=== PATIENT | female | born 1945 ===

== ENCOUNTER 2022-08-27 06:20 | Day surgery (SDC) | payer OTHER | END 2022-08-27 12:00 | disposition home or self-care (01) | LOC: AMB-ENDOS 06:20 | PROVIDERS: ATTEND Surgery | DX: D12.8 Benign neoplasm of rectum (principal); R93.5 Abnormal findings on diagnostic imaging of other abdominal regions, including retroperitoneum; R19.4 Change in bowel habit; K57.30 Diverticulosis of large intestine without perforation or abscess without bleeding; K64.8 Other hemorrhoids ==

== ENCOUNTER 2023-05-13 05:40 | Day surgery (SDC) | payer OTHER ==
[2023-05-10 10:48] LABS: HEMATOCRIT 37.9 % (36.0-45.00); HEMOGLOBIN 12.5 g/dL (12.0-15.00); MEAN CELL VOLUME 85.9 fL (80.00-100.00); MEAN CORPUSCULAR HEMOGLOBIN 28.4 pg (27.00-32.0); PLATELET COUNT 221 K/uL (150-450); RED BLOOD COUNT 4.41 M/uL (4.00-6.00); RED CELL DISTRIBUTION WIDTH 13.5 % (11.5-14.5)
[2023-05-10 10:49] LABS: PH,URINE 5.5 (5.0-8.0); URINE APPEARANCE Clear; URINE BILIRRUBIN Negative (NEGATIVE); URINE BLOOD Negative; URINE COLOR Yellow; URINE GLUCOSE Negative (NEGATIVE); URINE LEUKOCYTE Trace; URINE NITRATE Negative; URINE PROTEIN Negative (NEGATIVE)
[2023-05-10 10:50] LABS: URINE BACTERIA 8.8 uL (0.0-1933); URINE RBC 4.8 uL (0.0-20.8); URINE WBC 9.5 uL (0.0-23.2)
[2023-05-10 11:32] LABS: INR 1.04; PARTIAL THROMBOPLASTIN TIME 30.3 SECONDS (22.0-34.0); PROTHROMBIN TIME 10.9 SECONDS (9.0-11.5)
[2023-05-10 11:34] LABS: ALBUMIN 3.7 gm/dL (3.4-5.0); BILIRUBIN TOTAL 1.45 mg/dL (0.3-1.2); CALCIUM 9.5 mg/dL (8.5-10.1); CREATININE SERUM 0.81 mg/dL (0.55-1.02); GFR 68.38; GLOBULINA 3.4 G/DL (2.4-3.5); POTASSIUM 4.43 mEq/L (3.5-5.1); TOTAL PROTEIN 7.1 gm/dL (6.4-8.2)
[~2023-05-13 05:40] MED LIST: COZAAR50 MG; GLIPIZIDE XL2.5 MG; MONTELUKAST SODI4 M1; PEPCID 40 MG; SIMVASTATIN40 MG; SYNTHROID50 MCG PO
[2023-05-13] MEDS ORDERED: CEFTRIAXONE SODIUM 2,000 MG VIAL ONE (06:17)
[2023-05-13] MEDS ORDERED: METRONIDAZOLE/SODIUM CHLORIDE 500 MG/100 ML PIGGYBACK IV ONE (06:17)
[2023-05-13] MEDS ORDERED: LIDOCAINE HCL/EPINEPHRINE 20 ML VIAL IJ ONE ×2 (07:34→10:30)
[2023-05-13] MEDS ORDERED: BUPIVACAINE HCL 250MG/50ML VIAL ONE (07:34)
[2023-05-13] MEDS ORDERED: DORZOLAMIDE-TIM10 ML (07:45)
[2023-05-13] MEDS ORDERED: LATANOPROST2.5 ML (07:45)
[2023-05-13] MEDS ORDERED: FAMOTIDINE40 MG (07:45)
[2023-05-13] MEDS ORDERED: SUGAMMADEX SODIUM 200 MG/2 ML VIAL IV ONE (09:08)
[2023-05-13] MEDS ORDERED: CEFTRIAXONE SODIUM 2,000 MG in 0.9 % SODIUM CHLORIDE 50 ML IV ONE (10:30)
[2023-05-13] MEDS ORDERED: METRONIDAZOLE/SODIUM CHLORIDE 200 ML IV ONE (10:30)
[2023-05-13] MEDS ORDERED: BUPIVACAINE HCL/PF 0.5% 30ML ML IU ONE (10:30)
[2023-05-13] MEDS ORDERED: TAMSULOSIN HCL 0.4 MG CAP PO ONE (12:00)
[2023-05-13] MEDS ORDERED: TRAMADOL HCL50 MG PO (12:15)
== END 2023-05-13 14:10 | disposition home or self-care (01) ==
LOC: CIR.AMB 05:40 → O/R 05:40 → SURH 05:40 → SURG 05:40 → EDSTATUS 09:15 → SURH 09:15 → SURG 09:22 → O/R 09:22 → SURG 12:02 → O/R 12:02 → CIR.AMB 14:10 → SURH 18:45
PROVIDERS: ATTEND Surgery
DX: K66.0 Peritoneal adhesions (postprocedural) (postinfection) (principal); K63.5 Polyp of colon; K57.30 Diverticulosis of large intestine without perforation or abscess without bleeding; R19.4 Change in bowel habit; Z88.6 Allergy status to analgesic agent; Z20.822 Contact with and (suspected) exposure to COVID-19